=== PATIENT | male | born 1950 | race Two or more races ===

== ENCOUNTER 2016-12-29 18:49 | Inpatient (IN) | payer MEDICARE ==
[~2016-12-29] VITALS: Ht 165.1 cm; Wt 67.0 kg
[2016-12-29] MEDS ORDERED: SODIUM CHLORIDE 0.9% 1,000ML IVBOLUS ONE (19:00)
[2016-12-29] MEDS ORDERED: ONDANSETRON 2MG/ML, 2ML IVPush ONE (19:00)
[2016-12-29] MEDS ORDERED: SODIUM CHLORIDE FLUSH 10ML SYR IVF ONE (19:00)
[2016-12-29 19:25] LABS: ASPARTATE AMINO TRANSFERASE 15 U/L (15-37); BLOOD UREA NITROGEN 9 mg/dL (7-18)
[2016-12-29] MEDS ORDERED: ONDANSETRON 2MG/ML, 2ML ONE (21:34)
[2016-12-29] MEDS ORDERED: SIMV20TA3 PO (21:45)
[2016-12-29] MEDS ORDERED: LOSA100T6 PO (21:45)
[2016-12-29] MEDS ORDERED: DEXL60CA PO (21:45)
[2016-12-29] MEDS ORDERED: PSYL0.528 PO (21:46)
[2016-12-29] MEDS ORDERED: OMNIPAQUE 350 MG/ML, 100ML BOTTLE ONE (21:53)
[2016-12-29] MEDS ORDERED: KETOROLAC 30 MG/1 ML IVPush ONE (22:00)
[2016-12-29] MEDS ORDERED: PIPERACILLIN/TAZO/PMX 3.375GM 0 ML ONE (22:21)
[2016-12-29] MEDS ORDERED: PIPERACILLIN/TAZO/PMX 4.5GM 100 ML IV ONE (22:30)
[2016-12-29] MEDS ORDERED: FAMOTIDINE 20 MG/2 ML ONE (22:37)
[2016-12-29] MEDS ORDERED: FAMOTIDINE 20 MG/2 ML IVPush ONE (23:00)
[2016-12-29] MEDS ORDERED: SODIUM CHLORIDE 0.9% 1,000 ML IV SCH (23:52)
[2016-12-30] MEDS ORDERED: BISACODYL 10 MG SUPP PR SCH
[2016-12-30] MEDS ORDERED: morphine SULFATE 10 MG/ML, 1ML IVPush PRN
[2016-12-30] MEDS ORDERED: ONDANSETRON 2MG/ML, 2ML IVPush PRN
[2016-12-30] MEDS ORDERED: PIPERACILLIN/TAZO 3.375 GM in SODIUM CHLORIDE 0.9% 50 ML IV SCH
[2016-12-30] MEDS ORDERED: ENALAPRILAT 1.25 MG/ML, 2ML IVPush PRN
[2016-12-30] MEDS ORDERED: MIDAZOLAM 1 MG/ML, 2ML ONE (00:24)
[2016-12-30] MEDS ORDERED: FENTANYL PF 250 MCG/5ML ONE (00:24)
[2016-12-30] MEDS ORDERED: ONDANSETRON 2MG/ML, 2ML ONE (00:38)
[2016-12-30] MEDS ORDERED: KETOROLAC 30 MG/1 ML ONE (00:38)
[2016-12-30] MEDS ORDERED: PROPOFOL 10 MG/ML, 20ML ONE (00:38)
[2016-12-30] MEDS ORDERED: SUCCINYLCHOLINE 20 MG/ML, 10ML ONE (00:38)
[2016-12-30] MEDS ORDERED: ROCURONIUM 10 MG/ML ONE (00:38)
[2016-12-30] MEDS ORDERED: HYDROmorphone 1 MG/ML, 1ML ONE (01:24)
[2016-12-30] MEDS ORDERED: FENTANYL PF 100 MCG/2ML ONE (01:24)
[2016-12-30] MEDS ORDERED: SUGAMMADEX 200 MG/2 ML IVPush ONE (01:30)
[2016-12-30] MEDS ORDERED: OXYcodone 5 MG/5 ML ORAL.SOL UDC PO PRN ×2 (02:00→03:30)
[2016-12-30] MEDS ORDERED: ACETAMINOPHEN 325 MG TABLET PO PRN ×2 (02:00→03:30)
[2016-12-30] MEDS ORDERED: HALOPERIDOL 5 MG/ML IV ONE (02:00)
[2016-12-30] MEDS: FENTANYL PF 100 MCG/2ML IV PRN ×3 (02:00→02:20)
[2016-12-30] MEDS ORDERED: hydrALAzine 20 MG/ML, 1ML IV PRN ×2 (02:00→03:30)
[2016-12-30] MEDS ORDERED: METOPROLOL 1 MG/ML, 5ML IV PRN (02:00)
[2016-12-30] MEDS: HYDROmorphone 1 MG/ML, 1ML IV PRN ×2 (02:05→02:15)
[2016-12-30] MEDS ORDERED: ACETAMINOPHEN 650 MG SUPP PR PRN (03:30)
[2016-12-30] MEDS ORDERED: HYDROmorphone 1 MG/ML, 1ML IV PRN (03:30)
[2016-12-30] MEDS ORDERED: DO NOT STOP ANTIBIOTICS AFTER 24HRS MC SCH (03:30)
[2016-12-30] MEDS ORDERED: ONDANSETRON 2MG/ML, 2ML IV PRN (03:30)
[2016-12-30] MEDS ORDERED: POTASSIUM CHLORIDE 20 MEQ in D5%-LACTATED RINGERS 1,000 ML IV SCH (03:30)
[2016-12-30] MEDS ORDERED: SODIUM CHLORIDE 0.9%, 500ML IV PRN (03:30)
[2016-12-30] MEDS: PIPERACILLIN/TAZO 3.375 GM in SODIUM CHLORIDE 0.9% 50 ML IV SCH ×3 (03:34→21:27)
[2016-12-30 06:22] LABS: BLOOD UREA NITROGEN 10 mg/dL (7-18)
[2016-12-30 06:25] LABS: ASPARTATE AMINO TRANSFERASE 10 U/L (15-37)
[2016-12-30 07:55] VITALS: BP 119/80
[2016-12-30] MEDS: ENOXAPARIN 30 MG/0.3 ML SQ SCH ×2 (09:11→21:28)
[2016-12-30] MEDS: FAMOTIDINE 20 MG/2 ML IVPush SCH ×2 (11:07→21:27)
[2016-12-30 12:16] VITALS: BP 115/80
[2016-12-30] MEDS: POTASSIUM CHLORIDE 40 MEQ in D5%-LACTATED RINGERS 1,000 ML IV SCH ×2 (13:16→23:20)
[2016-12-30 19:21] VITALS: BP 134/84
[2016-12-30] MEDS: KETOROLAC 30 MG/1 ML IV PRN (23:19)
[2016-12-31 02:55] VITALS: BP 117/82
[2016-12-31 05:20] LABS: BLOOD UREA NITROGEN 9 mg/dL (7-18)
[2016-12-31 05:24] LABS: ASPARTATE AMINO TRANSFERASE 13 U/L (15-37)
[2016-12-31] MEDS: PIPERACILLIN/TAZO 3.375 GM in SODIUM CHLORIDE 0.9% 50 ML IV SCH ×2 (05:37→14:03)
[2016-12-31 07:45] VITALS: BP 115/78
[2016-12-31] MEDS: ENOXAPARIN 30 MG/0.3 ML SQ SCH ×2 (09:18→21:19)
[2016-12-31] MEDS: FAMOTIDINE 20 MG/2 ML IVPush SCH ×2 (09:19→21:19)
[2016-12-31] MEDS: KETOROLAC 30 MG/1 ML IV PRN ×2 (10:43→17:50)
[2016-12-31] MEDS: POTASSIUM CHLORIDE 40 MEQ in D5%-LACTATED RINGERS 1,000 ML IV SCH (14:03)
[2016-12-31 15:26] VITALS: BP 126/88
[2016-12-31 15:43] VITALS: BP 132/85
[2016-12-31] MEDS: PIPERACILLIN/TAZO/PMX 3.375GM 50 ML IV SCH (21:19)
[2016-12-31] MEDS: DIPHENHYDRAMINE 25 MG CAPSULE PO PRN (21:21)
[2016-12-31 22:03] VITALS: BP 151/95
[2017-01-01] MEDS: KETOROLAC 30 MG/1 ML IV PRN ×3 (00:17→21:49)
[2017-01-01 02:18] VITALS: BP 144/88
[2017-01-01] MEDS: PIPERACILLIN/TAZO/PMX 3.375GM 50 ML IV SCH ×3 (05:48→21:47)
[2017-01-01 06:04] LABS: ASPARTATE AMINO TRANSFERASE 27 U/L (15-37); BLOOD UREA NITROGEN 7 mg/dL (7-18)
[2017-01-01] MEDS: ENOXAPARIN 30 MG/0.3 ML SQ SCH ×2 (08:11→21:47)
[2017-01-01] MEDS: FAMOTIDINE 20 MG/2 ML IVPush SCH ×2 (08:11→21:47)
[2017-01-01 09:45] VITALS: BP 127/88
[2017-01-01] MEDS: POTASSIUM CHLORIDE 40 MEQ in D5%-LACTATED RINGERS 1,000 ML IV SCH (10:06)
[2017-01-01 15:43] VITALS: BP 137/89
[2017-01-01 21:10] VITALS: BP 156/92
[2017-01-01] MEDS: DIPHENHYDRAMINE 25 MG CAPSULE PO PRN (22:38)
[2017-01-02 01:20] VITALS: BP 157/97
[2017-01-02] MEDS: PIPERACILLIN/TAZO/PMX 3.375GM 50 ML IV SCH (05:16)
[2017-01-02 05:47] LABS: BLOOD UREA NITROGEN 8 mg/dL (7-18)
[2017-01-02] MEDS: FAMOTIDINE 20 MG/2 ML IVPush SCH (08:35)
[2017-01-02] MEDS: ENOXAPARIN 30 MG/0.3 ML SQ SCH (08:35)
[2017-01-02 09:41] VITALS: BP 148/88
[2017-01-02 10:52] VITALS: BP 123/81
[2017-01-02] MEDS ORDERED: HYDR-3240 PO (11:01)
[2017-01-02] MEDS ORDERED: AMOX1TAB64 PO (11:02)
[2017-01-02] MEDS ORDERED: CEFU250T66 PO (12:21)
== END 2017-01-02 13:35 | disposition home or self-care (01) | DRG 853 ==
LOC: ED 19:42 → EDIP 23:52 → 4NOR 12-30 02:54 → DCLOUNGE 01-02 12:52
PROVIDERS: ADMIT Internal Medicine; ATTEND Internal Medicine
PROC: 0D9W0ZZ Drainage of Peritoneum, Open Approach (ICD-10-PCS; principal; 2016-12-30 00:15)
DX: A41.9 Sepsis, unspecified organism (principal); E43 Unspecified severe protein-calorie malnutrition; K57.80 Diverticulitis of intestine, part unspecified, with perforation and abscess without bleeding; K56.7 Ileus, unspecified; E87.1 Hypo-osmolality and hyponatremia; R17 Unspecified jaundice; K56.60 Unspecified intestinal obstruction; A08.4 Viral intestinal infection, unspecified; E78.5 Hyperlipidemia, unspecified; E87.6 Hypokalemia; I10 Essential (primary) hypertension; N28.1 Cyst of kidney, acquired; R00.0 Tachycardia, unspecified; B96.20 Unspecified Escherichia coli [E. coli] as the cause of diseases classified elsewhere; B95.5 Unspecified streptococcus as the cause of diseases classified elsewhere; Z68.24 Body mass index [BMI] 24.0-24.9, adult; Z90.49 Acquired absence of other specified parts of digestive tract
CPT/HCPCS: 36415; 74000; 74020; 74177; 80048; 80053; 81003; 83690; 85025; 87040; 87070; 87075; 87076; 87077; 87186; 87205; 96361; 96374; 96375; C1729; J1170; J1650; J1885; J2250; J2405; J2543; J2704; J3010; J3480; Q9967; J0330; J7030; J7121; Q0163; S0028